=== PATIENT | male | born 1975 | race African-American/Black ===

== ENCOUNTER 2020-07-24 10:45 | Outpatient (CLI) | payer OTHER ==
--- NOTE | 2020-07-24 11:28 | RAD ---
EXAM: XR Femur Rt 2 View STANDARD PROVIDED CLINICAL HISTORY: Disability COMPARISON: None FINDINGS: Retrograde intramedullary femoral nail transfixing healed femoral shaft fracture demonstrated with pr oximal and distal interlocking screws. There is no evidence for hardware loosening or migration. There is no evidence for an acute fracture. Right hip joint space appears preserved. Partially visual ized tibial nail. Right knee joint spaces appear preserved.. IMPRESSION: Postoperative change.
--- NOTE | 2020-07-24 12:09 | RAD ---
LUMBAR SPINE SERIES 2 VIEWS: HISTORY: Disability evaluation. FINDINGS: Vertebral bodies are normal in height. Some minimal disk narrowing is seen at the L3 and L4 levels. Pedicles are intact. Calcifications are seen which appear to be slightly inferior to the lower pole of the right kidney. It is possible that these are related to gallstones. Some minimal atheroscler otic change is noted. IMPRESSION: Mild arthritic change of the spine. Incidental findings as above. POS: [facility]
== END 2020-07-24 10:46 | disposition home or self-care (01) ==
LOC: BICRAD 10:45
PROVIDERS: ATTEND Internal Medicine
DX: Z02.71 Encounter for disability determination (principal); M46.96 Unspecified inflammatory spondylopathy, lumbar region; Z98.890 Other specified postprocedural states
CPT/HCPCS: 72100